=== PATIENT | male | born 1985 | race Caucasian/White ===

== ENCOUNTER 2020-05-28 09:08 | Observation (INO) | payer MEDICARE ==
[2020-05-28 09:12] VITALS: RESP 16
[2020-05-28] MEDS ORDERED: methylPREDNISolone SOD SUCCI 125 MG/2 ML VIAL IV STA (09:13)
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
--- NOTE | 2020-05-28 09:39 | XR ---
Soft tissue neck HISTORY: Difficulty swallowing 2 views of the neck The airway is patent. Epiglottis shows a normal appearance. There is no radiopaque foreign body. Post op changes are noted to the mandible and maxilla, about the orbits. Prevertebral soft tissues are nor mal. IMPRESSION: No abnormality evident.
[2020-05-28 09:50] LABS: Basophils # (A) 0.2 k/uL (0-0.2); Basophils % (A) 1 %; Eosinophils # (A) 0.6 k/uL (0-0.7); Eosinophils % (A) 4 %; HCT 48.6 % (39.0-53.0); HGB 16.5 gm/dL (13.0-17.5); Lymphocytes # (A) 3.5 k/uL (1.0-4.8); Lymphocytes % (A) 23 %; MCH 30.6 pg (25.0-35.0); MCHC 33.9 g/dL (31.0-37.0); MCV 90.1 fL (80.0-100.0); Mean Platelet Volume 9.1; Monocytes # (A) 1.4 k/uL (0-1.0); Monocytes % (A) 10 %; Neutrophils # (A) 8.9 k/uL (1.3-7.7); Neutrophils % (A) 60 %; Platelet Count 271 k/uL (150-450); RDW 12.3 % (11.5-15.5)
[2020-05-28 10:00] LABS: ALT 52 U/L (4-49); AST 42 U/L (17-59); African American GFR (CKD) >90 (>60 ml/min/1.73 sqM); Albumin 4.2 g/dL (3.5-5.0); Alkaline Phosphatase 115 U/L (38-126); Anion Gap 7 mmol/L; Blood Urea Nitrogen 10 mg/dL (9-20); Calcium 9.8 mg/dL (8.4-10.2); Carbon Dioxide 27 mmol/L (22-30); Chloride 105 mmol/L (98-107); Glucose 127 mg/dL (74-99); Non-African American GFR(CKD) >90 (>60 ml/min/1.73 sqM); Potassium 4.5 mmol/L (3.5-5.1); Sodium 139 mmol/L (137-145); Total Bilirubin 0.6 mg/dL (0.2-1.3)
[2020-05-28] MEDS ORDERED: AMPICILLIN-SULBACTAM 3 GM in SODIUM CHLORIDE 0.9% 100 ML IVPB STA (10:52)
[2020-05-28] MEDS ORDERED: CLINDAMYCIN 600 MG in DEXTROSE 5% IN WATER 50 ML IVPB STA ×2 (11:04)
[2020-05-28] MEDS ORDERED: SODIUM CHLORIDE 0.9% 1,000 ML IV ONE (11:14)
[2020-05-28] MEDS ORDERED: DEXAMETHASONE SOD PHOSPHATE 10 MG/ML 1 ML VIAL IV STA (11:16)
[2020-05-28] MEDS ORDERED: diphenhydrAMINE 50 MG/ML 1 ML VIAL IVP STA (11:23)
[2020-05-28] MEDS ORDERED: AMPICILLIN-SULBACTAM 3 GM in SODIUM CHLORIDE 0.9% 100 ML IVPB SCH (12:00)
[2020-05-28] MEDS ORDERED: clonazePAM 1 MG TAB PO PRN (14:08)
[2020-05-28] MEDS ORDERED: HYDROcodone/APAP 10-325MG 1 EACH TAB PO PRN (14:08)
[2020-05-28 15:34] VITALS: BP 136/87; PULSE 92; TEMP 97.5
[2020-05-28] MEDS ORDERED: PANTOPRAZOLE 40 MG TABLET PO SCH (17:30)
[2020-05-28] MEDS ORDERED: CLINDAMYCIN 600 MG in DEXTROSE 5% IN WATER 50 ML IVPB SCH ×2 (18:00)
[2020-05-29] MEDS ORDERED: DEXAMETHASONE SOD PHOSPHATE 10 MG/ML 1 ML VIAL IV SCH (09:00)
[2020-05-29] MEDS ORDERED: FAMOTIDINE 20 MG TAB PO SCH (09:00)
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
--- NOTE | 2020-05-30 07:08 | DS ---
DISCHARGE SUMMARY CHIEF COMPLAINT: Difficulty swallowing, leukocytosis and inflammation of the uvula. HISTORY OF PRESENT ILLNESS AND PHYSICAL EXAM: Details of this man's history and physical can be found in the initial workup. LABORATORY STUDIES: While he was in the hospital he had laboratory studies, details of which can be found in the laboratory section of his chart. COURSE IN THE HOSPITAL: After admission, he was placed on bedrest, started on intravenous fluids and was to be started on antibiotics and then he signed himself out AGAINST MEDICAL ADVICE. FINAL DIAGNOSES: 1. Dysphagia. 2. Uvular swelling. 3. Leukocytosis. 4. History of prior head injury with seizure disorder. OPERATIONS: None. CONSULTATION: None. MMODL / IJN: [id number] /
== END 2020-05-28 16:50 | disposition left against medical advice (07) ==
LOC: EC 09:08 → 1SOBS 11:14
PROVIDERS: ADMIT Family Medicine; ATTEND Family Medicine
DX: R13.10 Dysphagia, unspecified (principal); R60.9 Edema, unspecified; D72.829 Elevated white blood cell count, unspecified; G40.909 Epilepsy, unspecified, not intractable, without status epilepticus; K21.9 Gastro-esophageal reflux disease without esophagitis; F17.200 Nicotine dependence, unspecified, uncomplicated; Z88.0 Allergy status to penicillin; Z87.820 Personal history of traumatic brain injury; Z79.899 Other long term (current) drug therapy
CPT/HCPCS: 96365; 96366; 96375; 99285; 36415; 80053; 85025; 87040; 87081; 87430; 70360; G0378; J1200; J1100; J2930

== ENCOUNTER → 2022-07-26 | Outpatient (CLI) | payer OTHER ==
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
== END ==
LOC: SLEEP 10:40
PROVIDERS: ATTEND Internal Medicine
DX: G47.33 Obstructive sleep apnea (adult) (pediatric) (principal); E66.9 Obesity, unspecified; Z68.34 Body mass index [BMI] 34.0-34.9, adult; K21.9 Gastro-esophageal reflux disease without esophagitis; Z98.890 Other specified postprocedural states; J34.2 Deviated nasal septum; Z96.5 Presence of tooth-root and mandibular implants; Z88.0 Allergy status to penicillin; Z88.8 Allergy status to other drugs, medicaments and biological substances; F17.200 Nicotine dependence, unspecified, uncomplicated
CPT/HCPCS: 99211

== ENCOUNTER → 2022-10-22 | Outpatient (CLI) | payer MEDICARE, OTHER ==
[2022-10-22 16:28] LABS: ALT 50 U/L (10-49); AST 34 U/L (14-35); African American GFR (CKD) 128.8 (60.0-200.0); Albumin 4.6 g/dL (3.8-4.9); Albumin/Globulin Ratio 1.96 (1.60-3.17); Alkaline Phosphatase 134 U/L (41-126); BUN/Creat Ratio 10.01 Ratio (12.00-20.00); Blood Urea Nitrogen 8.8 mg/dL (9.0-27.0); Calcium 10.1 mg/dL (8.7-10.3); Carbon Dioxide 28.5 mmol/L (20.0-27.5); Chloride 103 mmol/L (96-109); Chol/HDL Ratio 4.82 Ratio; Globulin 2.4 g/dL (1.6-3.3); Glucose 124 mg/dL (70-110); LDL Cholesterol,Calculated 108.1 mg/dL (0.0-131.0); Non-African American GFR(CKD) 111.1 (60.0-200.0); Sodium 142 mmol/L (135-145)
[2022-10-22 16:47] LABS: Basophils # (A) 0.13 X 10*3/uL (0.00-0.10); Basophils % (A) 1.1 %; Eosinophils # (A) 0.28 X 10*3/uL (0.04-0.35); Eosinophils % (A) 2.4 %; HCT 52.2 % (39.6-50.0); HGB 16.7 g/dL (13.0-17.0); Immature Grans, Automated 0.3 %; Lymphocytes % (A) 20.5 %; MCH 29.8 pg (27.0-32.0); Mean Platelet Volume 12.4 fL (9.5-12.2); Monocytes # (A) 1.09 X 10*3/uL (0.20-1.00); Monocytes % (A) 9.3 %; NRBC Per 100 WBC 0 /100 WBCS (0.0-0.0); Neutrophils # (A) 7.75 X 10*3/uL (1.80-7.70); Neutrophils % (A) 66.4 %; Platelet Count 264 X 10*3/uL (140-440); RBC 5.61 X 10*6/uL (4.40-5.60); RDW 12.5 % (11.5-14.5); WBC 11.69 X 10*3/uL (4.50-10.00)
== END | disposition home or self-care (01) ==
LOC: LABWHC1 09:53
PROVIDERS: ATTEND Internal Medicine
DX: Z11.59 Encounter for screening for other viral diseases (principal); E78.5 Hyperlipidemia, unspecified
CPT/HCPCS: 36415; 80053; 80061; 84443; 85025; 86803

== ENCOUNTER → 2022-11-12 | Outpatient (CLI) | payer MEDICARE, OTHER ==
--- NOTE | 2022-11-12 09:20 | US ---
EXAMINATION TYPE: US abdomen complete DATE OF EXAM: 11/12/2022 COMPARISON: NONE CLINICAL INDICATION: Male, 36 years old with history of N13.8; Elevated liver enzymes TECHNIQUE: Multiple sonographic images of the abdomen are obtained. FINDINGS: EXAM MEASUREMENTS: Liver Length: 15.0 cm Gallbladder Wall: 0.2 cm CBD: 0.4 cm Spleen: 12.9 cm Right Kidney: 11.3 x 5.6 x 5.1 cm Left Kidney: 11.0 x 6.1 x 5.8 cm Pancreas: visualized portions wnl, limited by overlying midline bowel gas Liver: course echotexture Gallbladder: wnl Evidence for sonographic Langston's sign: no CBD: visualized portions wnl, limited by overlying midline bowel gas Spleen: wnl Right Kidney: wnl Left Kidney: wnl Upper IVC: wnl Abd Aorta: visualized portions wnl, limited by overlying midline bowel gas The visualized liver is heterogeneously hyperechoic. Evaluation for focal masses suboptimal due to th e heterogeneity. No adjacent ascites. The intrahepatic portion of the IVC and visualized abdominal a bouchra are within normal limits. There is no evidence of cholelithiasis. Common bile duct is unremark able. The visualized portions of the pancreas are homogenous. Portions are obscured by overlying bow el gas. The spleen is upper limits of normal in size. Kidneys are symmetric and free of hydronephro sis. No renal lesions are seen. IMPRESSION: Heterogeneous hyperechoic appearance of liver could reflect products of diffuse fatty inf iltration and/or underlying hepatocellular disease.
== END | disposition home or self-care (01) ==
LOC: RADUSWWP 08:08
PROVIDERS: ATTEND Internal Medicine
DX: R74.01 Elevation of levels of liver transaminase levels (principal)
CPT/HCPCS: 76700

== ENCOUNTER → 2023-05-01 | Outpatient (CLI) | payer MEDICARE, OTHER ==
[2023-05-01 17:35] LABS: Basophils # (A) 0.09 X 10*3/uL (0.00-0.10); Basophils % (A) 1.1 %; Eosinophils # (A) 0.19 X 10*3/uL (0.04-0.35); Eosinophils % (A) 2.4 %; HGB 14.9 d/dL (13.0-17.0); Lymphocytes # (A) 2.13 X 10*3/uL (0.90-5.00); Lymphocytes % (A) 27.2 %; MCH 29.2 pg (27.0-32.0); MCHC 31.7 d/dL (32.0-37.0); Mean Platelet Volume 11.9 FL (9.5-12.2); Monocytes # (A) 0.68 X 10*3/uL (0.20-1.00); Monocytes % (A) 8.7 %; NRBC Per 100 WBC 0 X 10*3/uL (0.00-0.01); Neutrophils # (A) 4.71 X 10*3/uL (1.80-7.70); Neutrophils % (A) 60.2 %; Platelet Count 289 X 10*3/uL (140-440); RBC 5.11 X 10*6/uL (4.40-5.60); RDW 12.5 % (11.5-14.5); WBC 7.83 X 10*3/uL (4.50-10.00)
[2023-05-01 20:45] LABS: % Iron Saturation 23.13 (15.00-50.00); ALT 24 U/L (10-49); AST 24 U/L (14-35); Albumin 4.4 d/dL (3.8-4.9); Albumin/Globulin Ratio 1.91 Ratio (1.60-3.17); Alkaline Phosphatase 95 U/L (41-126); BUN/Creat Ratio 10.12 Ratio (12.00-20.00); Bilirubin, Conjugated <0.20 mg/dL (0.20-0.40); Bilirubin,Unconjugated >0.20 mg/dL (0.20-1.00); Blood Urea Nitrogen 8.1 mg/dL (9.0-27.0); Calcium 9.5 mg/dL (8.7-10.3); Carbon Dioxide 29.5 mmol/L (21.6-31.8); Chloride 104 mmol/L (96-109); Chol/HDL Ratio 3.65 Ratio; Globulin 2.3 d/dL (1.6-3.3); Glucose 102 mg/dL (70-110); Iron 93 UG/DL (65-175); LDL Cholesterol,Calculated 107.1 mg/dL (0.0-131.0); Potassium 4.6 mmol/L (3.5-5.5); Sodium 143 mmol/L (135-145); Total Bilirubin 0.4 mg/dL (0.3-1.2); Total Iron Binding Capacity 402 UG/DL (228-460); Total Protein 6.7 d/dL (6.2-8.2)
[2023-05-01 21:13] LABS: Hepatitis A Antibody IgM Nonreactive; Hepatitis B Surface Antigen Nonreactive; Hepatitis C IgG Antibody Nonreactive
[2023-05-01 21:16] LABS: Ceruloplasmin 22.5 mg/dL (20.0-60.0)
[2023-05-01 22:38] LABS: Hepatitis B Core IgM Nonreactive
[2023-05-02 05:49] LABS: EBV - VCA IgM <10.0 U/mL (<36.0)
[2023-05-02 10:38] LABS: Smooth Muscle Antibody 3 UNITS (<20)
== END | disposition home or self-care (01) ==
LOC: LABWHC1 12:09
PROVIDERS: ATTEND Internal Medicine
DX: E78.5 Hyperlipidemia, unspecified (principal); R74.01 Elevation of levels of liver transaminase levels; R73.9 Hyperglycemia, unspecified
CPT/HCPCS: 36415; 80053; 80061; 80074; 82103; 82104; 82248; 82390; 82525; 82728; 83036; 83516; 83540; 83550; 84443; 85025; 86645; 86665

== ENCOUNTER → 2023-08-07 | Outpatient (CLI) | payer OTHER, MEDICARE ==
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
== END ==
LOC: 3 N SLEEP 14:46
PROVIDERS: ATTEND Internal Medicine
DX: G47.33 Obstructive sleep apnea (adult) (pediatric) (principal); E66.9 Obesity, unspecified; J34.2 Deviated nasal septum; K21.9 Gastro-esophageal reflux disease without esophagitis; F12.90 Cannabis use, unspecified, uncomplicated; F17.200 Nicotine dependence, unspecified, uncomplicated; Z87.81 Personal history of (healed) traumatic fracture; Z87.828 Personal history of other (healed) physical injury and trauma; Z99.89 Dependence on other enabling machines and devices; Z88.0 Allergy status to penicillin; Z88.8 Allergy status to other drugs, medicaments and biological substances
CPT/HCPCS: 99212

== ENCOUNTER → 2023-09-20 | Day surgery (SDC) | payer MEDICARE, OTHER ==
[~2023-09-20] MED LIST: LACTATED RINGERS 1,000 ML IV SCH; LIDOCAINE 1% (10MG/ML) FOR IV START INTRADERMA PRN; LIDOCAINE 1% INJ 10MG/ML (20 ML MDV) ONE; MIDAZOLAM 2 MG/2 ML VIAL ONE; PROPOFOL 10 MG/ML 20 ML VIAL IV ONE; fentaNYL (PF) 50 MCG/ML 2 ML AMP ONE
[2023-09-20] MEDS: LACTATED RINGERS 1,000 ML IV ONE (08:19)
[2023-09-20 08:57] VITALS: TEMP 97.1
--- NOTE | 2023-09-20 09:05 | P.PCN ---
Date of Procedure: 09/20/23 Procedure(s) Performed: BRIEF HISTORY: Patient is a 37-year-old, pleasant, white male scheduled for an upper endoscopy as a part of evaluation of long-standing standing history of GERD.. PROCEDURE PERFORMED: Esophagogastroduodenoscopy with biopsy. PREOPERATIVE DIAGNOSIS: Long-standing history of GERD. IV sedation per anesthesia. PROCEDURE: After informed consent was obtained, the patient was brought into the endoscopy unit. IV sedation was administered by Anesthesia under continuous monitoring. Initially the Olympus GIF-140 video endoscope was inserted into the mouth. Esophagus intubated without any difficulty. It was gradually advanced into the stomach and duodenum and carefully examined. The bulb and the second part of the duodenum appeared normal. The scope at this time was withdrawn to the stomach, adequately insufflated with air, and upon careful examination, mucosa of the antrum, had mild gastritis and biopsies were done from this area. There was small amount of retained food in the fundus of the stomach suggestive of gastroparesis. Mucosa of the body, cardia and the fundus appeared normal. The scope was then withdrawn into the esophagus. The GE junction was located at 39 cm from the incisors. There were linear erosions in the distal esophagus consistent with LA grade B reflux esophagitis. There was a 3 mm tongue of Duron's appearing mucosa just proximal to the GE junction which was also biopsied. The rest of the esophagus appeared normal. The patient tolerated the procedure well. IMPRESSION: 1. Linear erosions in the distal esophagus consistent with LA grade B reflux esophagitis and questionable short segment Duron's esophagus. 2. Mild antral gastritis 3. Small amount of retained food in the stomach suggestive of gastroparesis. RECOMMENDATIONS: The findings of this examination were discussed with the patient as well as a family. He was advised to follow with the biopsy results.. Continue with omeprazole 20 mg daily and follow antireflux measures. Recommend small frequent meals. If the biopsy confirms the presence of Duron's esophagus he can have a repeat upper endoscopy in 3 years.
[2023-09-20 09:33] VITALS: BP 128/84; PULSE 86; RESP 16
== END ==
LOC: ORWHC2ENDO 08:00
PROVIDERS: ATTEND Internal Medicine Gastroenterology
DX: K29.50 Unspecified chronic gastritis without bleeding (principal); K21.00 Gastro-esophageal reflux disease with esophagitis, without bleeding; G47.33 Obstructive sleep apnea (adult) (pediatric); M19.90 Unspecified osteoarthritis, unspecified site; F17.290 Nicotine dependence, other tobacco product, uncomplicated; Z91.013 Allergy to seafood; Z88.0 Allergy status to penicillin; Z88.8 Allergy status to other drugs, medicaments and biological substances; Z79.899 Other long term (current) drug therapy; Z90.49 Acquired absence of other specified parts of digestive tract
CPT/HCPCS: 88305; 43239; J2250; J2001; J3010; J2704

== ENCOUNTER → 2024-03-05 | Outpatient (CLI) | payer MEDICARE, OTHER | LOC: 3 N SLEEP 13:20 | PROVIDERS: ATTEND Internal Medicine | CPT/HCPCS: 99212 ==

== ENCOUNTER → 2024-10-01 | Outpatient (CLI) | payer MEDICARE, OTHER ==
[2024-10-01 15:15] VITALS: BP 134/82; PULSE 92; RESP 16; TEMP 97.8
--- NOTE | 2024-10-01 15:36 | P.PROGSL ---
Subjective DATE: 10/01/2024 FOLLOW UP VISIT. Patient with obstructive sleep apnea hypopnea syndrome return to sleep center for follow-up visit. Information from previous visit have been reviewed. Patient is using PAP equipment every night for the whole night, getting PAP supplies in time. The patient does not have significant problems with the mask, PAP unit and humidification. [place] sleepiness scale is 4. I checked information from PAP unit. PAP unit pressure 5-13 cm H2O. Usage is 80% for more then 4 hours, average 5 hours per night. Leak is 7 l/m, which is in acceptable range. Apnea Hypopnea Index is 1.2, which is normal. MEDICATIONS have been reviewed, please see below. During physical exam: GENERAL: A pleasant patient without any distress. VITAL SIGNS: Please see below, weight is 232 lbs. HEENT: PERRLA, EOMI.low position of soft palate, Mallapati 3. NECK: Supple. No JVD. LUNGS: Clear to percussion and to auscultation. Good air exchange. No wheezing or rhonchi. HEART: S1, S2 regular. ABDOMEN: Soft and nontender.[] EXTREMITIES: No clubbing or cyanosis. FIBREGLASS LAMINATOR: Awake, alert, and oriented x3. No focal deficit. Impressions: 1. Obstructive sleep apnea-hypopnea syndrome. Patient demonstrated good compliance with treatment, benefiting from treatment. 2. Obesity, patient increased weight on 10 pounds comparing with previous visit. 3. Acid reflux. 4. History of depression. 5. History of tremor. Plan: 1. Continue using PAP equipment every night for the whole night. 2. Sleep hygiene with regular time in bed for at least 7.5-8 hours 3. PAP unit should stay lower then position of the head. 4. Advised patient to remove all remaining water from humidifier canister daily and make it dry after each usage. Refill canister with fresh distilled water before each usage. 5. Watching weight. 6. Precautions related to driving. No driving if feel any sleepiness. 7. I will maintain prescription for PAP supplies including mask, tube, filters. 8. Follow up visit in 8 months or earlier if patient has any problems. Thank you very much for allowing me to participate in the management of your patient. Channing Brennan MD, PhD, FAASM. Diplomat of [place] [employer], Sleep Medicine Board by [place] [employer] Structural Engineering Technician of [facility] [place] Objective - Vital Signs Vital Signs: Vital Signs Temp 97.8 F 10/01/24 15:15 Pulse 92 10/01/24 15:15 Resp 16 10/01/24 15:15 BP 134/82 10/01/24 15:15 Pulse Ox 95 10/01/24 15:15 FiO2 Home Medications: Home Medications Medication Instructions Recorded Confirmed Type Diclofenac Sodium Gel [Voltaren 1 applic TOPICAL QID PRN 05/28/20 09/20/23 History Gel] HYDROcodone/APAP 10-325MG [[place] 1 tab PO HS PRN 05/28/20 09/20/23 History 10-325] Pantoprazole Sodium [Protonix] 20 mg PO BID 05/28/20 09/20/23 History clonazePAM [KlonoPIN] 1 mg PO TID PRN 05/28/20 09/20/23 History Baclofen 10 mg PO TID PRN 09/20/23 09/20/23 History Mirtazapine 15 mg PO HS 09/20/23 09/20/23 History Primidone [Mysoline] 25 mg PO DAILY 09/20/23 09/20/23 History
== END ==
LOC: 3 N SLEEP 14:59
PROVIDERS: ATTEND Internal Medicine
DX: G47.33 Obstructive sleep apnea (adult) (pediatric) (principal); K21.9 Gastro-esophageal reflux disease without esophagitis; F17.210 Nicotine dependence, cigarettes, uncomplicated; F12.90 Cannabis use, unspecified, uncomplicated; Z86.59 Personal history of other mental and behavioral disorders; Z86.69 Personal history of other diseases of the nervous system and sense organs; Z91.013 Allergy to seafood; Z88.0 Allergy status to penicillin; Z88.8 Allergy status to other drugs, medicaments and biological substances
CPT/HCPCS: 99212